=== PATIENT | female | born 1990 | race Caucasian/White ===

== ENCOUNTER 2020-08-26 08:55 | Emergency (ER) | payer BC, OTHER ==
[~2020-08-26] VITALS: Ht 167.6 cm; Wt 52.3 kg
[2020-08-26] MEDS ORDERED: NS 1,000 ML IV ONE (09:55)
[2020-08-26] MEDS ORDERED: ONDANSETRON 4MG/2ML VIAL IV ONE (09:55)
[2020-08-26 10:43] LABS: BASO # 0.1 10^3/uL (0.0-0.2); BASO % 0.5 % (0.0-1.0); EOS % 0.1 % (0.0-3.0); HEMATOCRIT 41.1 % (36.0-47.0); HEMOGLOBIN 13.7 g/dl (12.0-15.5); LYMPH # 1.9 10^3/uL (1.5-5.0); LYMPH % 16.2 % (24.0-44.0); MEAN CORPUSCULAR HEMOGLOBIN 31.9 pg (27.0-33.0); MEAN CORPUSCULAR HGB CONC 33.3 g/dl (32.0-36.5); MEAN CORPUSCULAR VOLUME 95.6 fl (80.0-96.0); MONO % 8.3 % (2.0-8.0); NEUTROPHILS # 8.6 10^3/uL (1.5-8.5); NEUTROPHILS % 74.3 % (36.0-66.0); PLATELET COUNT, AUTOMATED 285 10^3/uL (150-450); WHITE BLOOD COUNT 11.6 10^3/uL (4.0-10.0)
[2020-08-26 11:14] LABS: ALBUMIN 4.6 GM/DL (3.2-5.2); ALT/SGPT 50 U/L (12-78); AMYLASE 43 U/L (25-115); BILIRUBIN,DIRECT 0.1 MG/DL (0.0-0.2); BILIRUBIN,TOTAL 0.9 MG/DL (0.2-1.0); BLOOD UREA NITROGEN 7 MG/DL (7-18); CALCIUM LEVEL 9.6 MG/DL (8.5-10.1); CARBON DIOXIDE LEVEL 22 MEQ/L (21-32); CHLORIDE LEVEL 102 MEQ/L (98-107); CREATININE FOR GFR 0.59 MG/DL (0.55-1.30); GLOMERULAR FILTRATION RATE > 60.0 (>60); GLUCOSE, FASTING 61 MG/DL (70-100); LIPASE 57 U/L (73-393); POTASSIUM SERUM 4.3 MEQ/L (3.5-5.1); SODIUM LEVEL 136 MEQ/L (136-145); TOTAL PROTEIN 7.8 GM/DL (6.4-8.2)
[2020-08-26] MEDS ORDERED: GI COCKTAIL 50ML BTL(HYOSCYAMINE/MAALOX/LIDOCAINE VISCOUS)(1:3:1) PO ONE (11:20)
--- NOTE | 2020-08-26 11:32 | REP ---
INDICATION: ruq/epigastric pain and vomiting. COMPARISON: 07/20/2008 TECHNIQUE: Standard right upper quadrant sonography FINDINGS: The liver is homogeneously mildly hyperechoic throughout suggesting fatty infiltration. There is no hepatic mass, intrahepatic biliary dilatation cyst or adjacent ascites. Gallbladder is well filled without stone, sludge or pericholecystic fluid. Common duct is 1.8 mm without a common duct stone. Visualized pancreas was unremarkable. The right kidney is 11.5 x 5.5 x 3.3 cm without stone or hydronephrosis. IMPRESSION: 1. Diffuse fatty infiltration liver without focal hepatic mass, biliary dilatation or adjacent ascites. 2. Gallbladder, common bile duct, pancreas and right kidney grossly unremarkable. Nothing acute. <Electronically signed by Terry Toscano > 08/26/20 1126
[2020-08-26 12:02] LABS: APPEARANCE, URINE HAZY (CLEAR); BACTERIA, URINE AUTO NEGATIVE (NEGATIVE); BILIRUBIN, URINE AUTO NEGATIVE (NEGATIVE); BLOOD, URINE BLOOD NEGATIVE (NEGATIVE); COLOR, URINE YELLOW (YELLOW); GLUCOSE, URINE (UA) AUTO NEGATIVE (NEGATIVE); KETONE, URINE AUTO 2+ mg/dL (NEGATIVE); LEUKOCYTE ESTERASE, URINE AUTO NEGATIVE (NEGATIVE); NITRITE, URINE AUTO NEGATIVE (NEGATIVE); PROTEIN, URINE AUTO 2+ mg/dL (NEGATIVE); RBC, URINE AUTO 1 /HPF (0-3); SPECIFIC GRAVITY URINE AUTO 1.026 (1.002-1.035); SQUAMOUS EPITHELIAL CELL UR AU 5 /HPF (0-6); UROBILINOGEN, URINE AUTO 0.2 mg/dL (0.0-2.0); WBC, URINE AUTO 1 /HPF (0-3)
[2020-08-26] MEDS ORDERED: ONDA4TAB6 PO (12:12)
[2020-08-26] MEDS ORDERED: PROT1TAB2 PO (12:12)
[2020-08-26 12:16] VITALS: BP 111/61
== END 2020-08-26 12:20 | disposition home or self-care (01) ==
LOC: M ED 08:55
DX: K76.0 Fatty (change of) liver, not elsewhere classified (principal); K29.70 Gastritis, unspecified, without bleeding; E16.2 Hypoglycemia, unspecified; K21.9 Gastro-esophageal reflux disease without esophagitis; J45.909 Unspecified asthma, uncomplicated
CPT/HCPCS: 76705; 80048; 80076; 81001; 82150; 83690; 84702; 85025; 96361; 96374; 99284; J2405

== ENCOUNTER 2021-01-21 18:43 | Emergency (ER) | payer OTHER ==
[~2021-01-21] VITALS: Ht 167.6 cm; Wt 56.8 kg
[~2021-01-21 18:43] MED LIST: ONDA4TAB6 PO; PROT1TAB2 PO
[2021-01-21 18:48] VITALS: BP 137/85
--- OUTSIDE RECORDS SUMMARY | 2021-01-21 18:48 | CCD ---
Author Author [facility] Organization [facility] Address Unknown Phone Unavailable Care Team Providers Care Weather Teacher Name Role Phone OTTO, G EDWARD RPA Unavailable Unavailable OTTO, G EDWARD RPA Unavailable Unavailable OTTO, G EDWARD RPA Unavailable Unavailable OTTO, G EDWARD RPA Unavailable Unavailable OTTO, G EDWARD RPA Unavailable Unavailable OTTO, G EDWARD RPA Unavailable Unavailable OTTO, G EDWARD RPA Unavailable Unavailable OTTO, G EDWARD RPA Unavailable Unavailable OTTO, G EDWARD RPA Unavailable Unavailable OTTO, G EDWARD RPA Unavailable Unavailable OTTO, G EDWARD RPA Unavailable Unavailable OTTO, G EDWARD RPA Unavailable Unavailable OTTO, G EDWARD RPA Unavailable Unavailable OTTO, G EDWARD RPA Unavailable Unavailable OTTO, G EDWARD RPA Unavailable Unavailable OTTO, G EDWARD RPA Unavailable Unavailable OTTO, G EDWARD RPA Unavailable Unavailable OTTO, G EDWARD RPA Unavailable Unavailable OTTO, G EDWARD RPA Unavailable Unavailable OTTO, G EDWARD RPA Unavailable Unavailable OTTO, G EDWARD RPA Unavailable Unavailable OTTO, G EDWARD RPA Unavailable Unavailable OTTO, G EDWARD RPA Unavailable Unavailable OTTO, G EDWARD RPA Unavailable Unavailable OTTO, G EDWARD RPA Unavailable Unavailable OTTO, G EDWARD RPA Unavailable Unavailable OTTO, G EDWARD RPA Unavailable Unavailable OTTO, G EDWARD RPA Unavailable Unavailable OTTO, G EDWARD RPA Unavailable Unavailable OTTO, G EDWARD RPA Unavailable Unavailable OTTO, G EDWARD RPA Unavailable Unavailable OTTO, G EDWARD RPA Unavailable Unavailable OTTO, G EDWARD RPA Unavailable Unavailable OTTO, G EDWARD RPA Unavailable Unavailable OTTO, G EDWARD RPA Unavailable Unavailable OTTO, G EDWARD RPA Unavailable Unavailable FAM Sy MCKEON RPA Unavailable Unavailable Re-disclosure Warning The records that you are about to access may contain information from federally-assisted alcohol or drug abuse programs. If such information is present, then the following federally mandated warning applies: This information has been disclosed to you from records protected by federal confidentiality rules (42 CFR part 2). The federal rules prohibit you from making any further disclosure of this information unless further disclosure is expressly permitted by the written consent of the person to whom it pertains or as otherwise permitted by 42 CFR part 2. A general authorization for the release of medical or other information is NOT sufficient for this purpose. The Federal rules restrict any use of the information to criminally investigate or prosecute any alcohol or drug abuse patient.The records that you are about to access may contain highly sensitive health information, the redisclosure of which is protected by Article 27-F of the [facility] Public Health law. If you continue you may have access to information: Regarding HIV / AIDS; Provided by facilities licensed or operated by the [facility] Office of Mental Health; or Provided by the [facility] Office for People With Developmental Disabilities. If such information is present, then the following [facility] mandated warning applies: This information has been disclosed to you from confidential records which are protected by state law. State law prohibits you from making any further disclosure of this information without the specific written consent of the person to whom it pertains, or as otherwise permitted by law. Any unauthorized further disclosure in violation of state law may result in a fine or senior care sentence or both. A general authorization for the release of medical or other information is NOT sufficient authorization for further disc losure. Encounters Encounter Providers Location Date Indications Data Source(s ) Outpatient Attender: JLUISJULI OTTO RPA 08/26 08:17:52 AM EDT - 08/26/2020 08:43:47 AM EDT [facility] ([facility] ) Medications Medication Brand Name Start Date Product Form Dose Route Admi nistrative Instructions Pharmacy Instructions Status Indications Reaction Description Data Source(s) Ondansetron 4 MG Disintegrating Oral Tablet ONDANSETRON 08/26/2020 12:00:00 AM EDT tablet,disintegrating 16 DISSOLVE O NE TABLET ON TONGUE EVERY 6 TO 8 HOURS NEEDED NAUSEA & VOMTING DISSOLVE ONE TABLET ON TONGUE EVERY 6 TO 8 HOURS NEEDED NAUSEA & VOMTING SOLD: 08/27/2020 [employer] pantoprazole 40 MG Delayed Release Oral Tablet PANTOPRAZOLE SODIUM 08/26/2020 12:00:00 AM EDT tablet,delayed release (DR/EC) 30 T HARRIS ONE TABLET BY MOUTH EVERY DAY TAKE ONE TABLET BY MOUTH EVERY DAY SOLD: 08/27/2020 [employer] Insurance Providers Payer name Policy type / Coverage type Policy ID Covered constitution party ID Covered constitution party's relationship to cohen Policy Cohen Plan Information [facility]/307 [id number] FA2 [id number] [facility] [id number] Self [id number] N[employer] EPALS [id number] SP [id number] [facility] [id number] Problems, Conditions, and Diagnoses No Information Surgeries/Procedures No Information Results No Information Social History No Information
--- OUTSIDE RECORDS SUMMARY | 2021-01-21 20:24 | CCD ---
Author Author [facility] Organization [facility] Address Unknown Phone Unavailable Care Team Providers Care Icer Hand Name Role Phone OTTO, G EDWARD RPA [...] is protected by Article 27-F of the [facility] Public Health law. If you continue you may have access to information: Regarding HIV / AIDS; Provided by facilities licensed or operated by the [facility] Office of Mental Health; or Provided by the [facility] Office for People With Developmental Disabilities. If such information is present, then the following [facility] mandated warning applies: This information has been [...] law may result in a fine or detention sentence or both. A general authorization for the release of medical or other information is NOT sufficient authorization for further disc losure. Encounters Encounter Providers Location Date Indications Data Source(s ) Outpatient Attender: JLUISJULI OTTO RPA 08/26 08:17:52 AM EDT - 08/26/2020 08:43:47 AM EDT [facility] ([facility] ) Medications Medication Brand Name Start Date [...] HOURS NEEDED NAUSEA & VOMTING SOLD: 08/27/2020 [employer] pantoprazole 40 MG Delayed Release Oral Tablet PANTOPRAZOLE SODIUM 08/26/2020 12:00:00 AM EDT tablet,delayed release (DR/EC) 30 T HARRIS ONE TABLET BY MOUTH EVERY DAY TAKE ONE TABLET BY MOUTH EVERY DAY SOLD: 08/27/2020 [employer] Insurance Providers Payer name Policy type / Coverage type Policy ID Covered constitution party ID Covered constitution party's relationship to cohen Policy Cohen Plan Information [facility]/307 [id number] FA2 [id number] [facility] [id number] Self [id number] [employer] EPALS [id number] SP [id number] [facility]307 [id number] Problems, Conditions, and Diagnoses No Information Surgeries/Procedures No Information Results No Information Social History No Information
--- NOTE | 2021-01-22 14:35 | REP ---
INDICATION: possible seizure. COMPARISON: None. TECHNIQUE: 5 mm contiguous transaxial sections were obtained from the skull base to the cerebral convexities. FINDINGS: THE PATIENT IS STATUS POST LEFT TEMPORO FRONTAL CRANIOTOMY. 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 The ventricles and sulci are within normal limits. There is no evidence of an acute hemorrhagic or non hemorrhagic intracranial event. There is no shift of the midline structures. There is no evidence of a mass. The sella turcica, cavernous, and paracavernous structures are essentially unremarkable. The visualized portions of the paranasal sinuses and mastoid air cells are clear. Images of the skull base show no gross abnormality. IMPRESSION: No evidence of acute intracranial pathology. <Electronically signed by Jack Bardales > 01/22/21 [id number]
== END 2021-01-21 20:51 | disposition left against medical advice (07) ==
LOC: M ED 18:43
DX: Z53.21 Procedure and treatment not carried out due to patient leaving prior to being seen by health care provider (principal)

== ENCOUNTER → 2021-01-25 | Outpatient (CLI) | payer OTHER, SELFPAY | LOC: M OUTALCOH 07:49 | PROVIDERS: ATTEND Psychiatry & Neurology Psychiatry | DX: Z13.39 Encounter for screening examination for other mental health and behavioral disorders (principal); F10.20 Alcohol dependence, uncomplicated ==

== ENCOUNTER 2021-02-08 16:00 | Outpatient (RCR) | payer OTHER | END 2021-02-09 | LOC: M OUTALCOH 16:00 | PROVIDERS: ATTEND Psychiatry & Neurology Psychiatry | DX: F10.20 Alcohol dependence, uncomplicated (principal); F12.20 Cannabis dependence, uncomplicated ==

== ENCOUNTER → 2021-03-12 | Outpatient (RCR) | payer OTHER | LOC: M OUTALCOH 02-12 16:29 | PROVIDERS: ATTEND Psychiatry & Neurology Psychiatry | DX: F10.20 Alcohol dependence, uncomplicated (principal); F12.20 Cannabis dependence, uncomplicated ==

== ENCOUNTER → 2021-03-26 | Outpatient (REF) | payer OTHER ==
[2021-03-26 13:42] LABS: ALBUMIN 4.4 GM/DL (3.2-5.2); ALT/SGPT 14 U/L (12-78); BILIRUBIN,TOTAL 0.5 MG/DL (0.2-1.0); BLOOD UREA NITROGEN 10 MG/DL (7-18); CALCIUM LEVEL 9.4 MG/DL (8.5-10.1); CARBON DIOXIDE LEVEL 27 MEQ/L (21-32); CHLORIDE LEVEL 106 MEQ/L (98-107); CREATININE FOR GFR 0.78 MG/DL (0.55-1.30); FREE T4 0.73 NG/DL (0.76-1.46); GLOMERULAR FILTRATION RATE > 60.0 (>60); GLUCOSE, FASTING 87 MG/DL (70-100); POTASSIUM SERUM 4.1 MEQ/L (3.5-5.1); SODIUM LEVEL 140 MEQ/L (136-145); TOTAL PROTEIN 7.2 GM/DL (6.4-8.2)
== END ==
LOC: M SFHCADAM 11:31
PROVIDERS: ATTEND Family Medicine
DX: F41.8 Other specified anxiety disorders (principal)

== ENCOUNTER → 2021-04-09 | Outpatient (RCR) | payer MEDICAID | LOC: M OUTALCOH 03-13 10:32 | PROVIDERS: ATTEND Psychiatry & Neurology Psychiatry | DX: F10.20 Alcohol dependence, uncomplicated (principal); F12.20 Cannabis dependence, uncomplicated ==

== ENCOUNTER 2021-05-07 16:53 | Emergency (ER) | payer MEDICAID ==
[~2021-05-07] VITALS: Ht 167.6 cm; Wt 59.9 kg
[2021-05-07] MEDS ORDERED: BUSP10TA (17:23)
[2021-05-07] MEDS ORDERED: NALT50TA4 (17:23)
[2021-05-07] MEDS ORDERED: SKYL13.5 IU (17:23)
[2021-05-07] MEDS ORDERED: LEXA1TAB2 (17:23)
[2021-05-07 20:41] LABS: BASO % 0.3 % (0.0-1.0); EOS % 0.1 % (0.0-3.0); HEMATOCRIT 37.2 % (36.0-47.0); HEMOGLOBIN 12.8 g/dl (12.0-15.5); MEAN CORPUSCULAR HEMOGLOBIN 29.4 pg (27.0-33.0); MEAN CORPUSCULAR HGB CONC 34.4 g/dl (32.0-36.5); MEAN CORPUSCULAR VOLUME 85.3 fl (80.0-96.0); MONO # 0.7 10^3/uL (0.0-0.8); MONO % 7.5 % (2.0-8.0); NEUTROPHILS # 7.1 10^3/uL (1.5-8.5); NEUTROPHILS % 80.9 % (36.0-66.0); PLATELET COUNT, AUTOMATED 219 10^3/uL (150-450); RED BLOOD COUNT 4.36 10^6/uL (4.00-5.40); WHITE BLOOD COUNT 8.8 10^3/uL (4.0-10.0)
[2021-05-07 21:05] LABS: BLOOD UREA NITROGEN 12 MG/DL (7-18); CALCIUM LEVEL 9.2 MG/DL (8.5-10.1); CARBON DIOXIDE LEVEL 26 MEQ/L (21-32); CHLORIDE LEVEL 106 MEQ/L (98-107); GLOMERULAR FILTRATION RATE > 60.0 (>60); GLUCOSE, FASTING 82 MG/DL (70-100); MAGNESIUM LEVEL 2.5 MG/DL (1.8-2.4); POTASSIUM SERUM 3.9 MEQ/L (3.5-5.1); SODIUM LEVEL 138 MEQ/L (136-145)
[2021-05-07 21:07] LABS: HCG, SERUM QUALITATIVE NEGATIVE (NEGATIVE)
[2021-05-07 21:08] LABS: CK-MB VALUE MASS 8.1 NG/ML (<3.6); MB/CK RELATIVE INDEX 1.39 (< OR =4)
[2021-05-07] MEDS ORDERED: NS 1,000 ML IV ONE ×2 (21:15)
[2021-05-07] MEDS ORDERED: levETIRAcetam INJection 1,500 MG in D5W 100 ML IV ONE (21:15)
[2021-05-07] MEDS ORDERED: ONDANSETRON 4MG/2ML VIAL As Ordered ONE (22:13)
[2021-05-07] MEDS ORDERED: ONDANSETRON 4MG/2ML VIAL IV ONE (22:20)
[2021-05-07 22:45] LABS: CK-MB VALUE MASS 7.9 NG/ML (<3.6); MB/CK RELATIVE INDEX 1.25 (< OR =4)
[2021-05-07] MEDS ORDERED: KEPP1TAB PO (23:32)
[2021-05-07 23:53] VITALS: BP 117/70
[2021-05-08] MEDS ORDERED: ONDANSETRON 4MG ORAL DISINTEGRATING TAB PO ONE
== END 2021-05-08 00:02 | disposition home or self-care (01) ==
LOC: M ED 16:53
DX: R56.9 Unspecified convulsions (principal); R00.1 Bradycardia, unspecified; F32.9 Major depressive disorder, single episode, unspecified; F12.10 Cannabis abuse, uncomplicated; Z98.890 Other specified postprocedural states
CPT/HCPCS: 70450; 80048; 81002; 82550; 82553; 83735; 84703; 85025; 93005; 96361; 96365; 96375; 99285; J1953; J2405

== ENCOUNTER → 2021-05-10 | Outpatient (RCR) | payer MEDICAID ==
[~2021-05-10] MED LIST changes: +BUSP10TA; +KEPP1TAB PO; +LEXA1TAB2; +NALT50TA4; +SKYL13.5 IU
== END ==
LOC: M OUTALCOH 04-10 09:46
PROVIDERS: ATTEND Psychiatry & Neurology Psychiatry
DX: F10.20 Alcohol dependence, uncomplicated (principal); F12.20 Cannabis dependence, uncomplicated

== ENCOUNTER → 2021-05-14 | Outpatient (REF) | payer MEDICAID | LOC: M SFHCADAM 17:44 | PROVIDERS: ATTEND Physician Assistant Medical | DX: R09.81 Nasal congestion (principal) ==

== ENCOUNTER 2021-06-08 10:30 | Outpatient (RCR) | payer MEDICAID | END 2021-06-09 | LOC: M OUTALCOH 10:30 | PROVIDERS: ATTEND Psychiatry & Neurology Psychiatry | DX: F10.20 Alcohol dependence, uncomplicated (principal); F12.20 Cannabis dependence, uncomplicated ==

== ENCOUNTER → 2021-07-03 | Outpatient (CLI) | payer OTHER ==
[2021-07-03 15:36] LABS: BASO # 0.1 10^3/uL (0.0-0.2); BASO % 0.7 % (0.0-1.0); EOS # 0.1 10^3/uL (0.0-0.5); EOS % 1.5 % (0.0-3.0); HEMATOCRIT 35.8 % (36.0-47.0); HEMOGLOBIN 11.9 g/dl (12.0-15.5); LYMPH # 3.2 10^3/uL (1.5-5.0); LYMPH % 42.6 % (24.0-44.0); MEAN CORPUSCULAR HEMOGLOBIN 28.6 pg (27.0-33.0); MEAN CORPUSCULAR HGB CONC 33.2 g/dl (32.0-36.5); MEAN CORPUSCULAR VOLUME 86.1 fl (80.0-96.0); MONO # 0.6 10^3/uL (0.0-0.8); MONO % 7.4 % (2.0-8.0); NEUTROPHILS # 3.6 10^3/uL (1.5-8.5); NEUTROPHILS % 47.5 % (36.0-66.0); PLATELET COUNT, AUTOMATED 219 10^3/uL (150-450); RED BLOOD COUNT 4.16 10^6/uL (4.00-5.40); WHITE BLOOD COUNT 7.5 10^3/uL (4.0-10.0)
== END ==
LOC: M PLALAB 13:59
PROVIDERS: ATTEND Psychiatry & Neurology Psychiatry
DX: F43.23 Adjustment disorder with mixed anxiety and depressed mood (principal); F10.20 Alcohol dependence, uncomplicated; F12.99 Cannabis use, unspecified with unspecified cannabis-induced disorder; Z63.4 Disappearance and death of family member; Z56.9 Unspecified problems related to employment; F32.A Depression, unspecified

== ENCOUNTER → 2021-07-10 | Outpatient (RCR) | payer MEDICAID | LOC: M OUTALCOH 06-11 16:36 | PROVIDERS: ATTEND Psychiatry & Neurology Psychiatry | DX: F10.20 Alcohol dependence, uncomplicated (principal); F12.20 Cannabis dependence, uncomplicated ==

== ENCOUNTER 2021-08-07 10:24 | Outpatient (RCR) | payer MEDICAID | END 2021-08-09 | LOC: M OUTALCOH 10:24 | PROVIDERS: ATTEND Psychiatry & Neurology Psychiatry | DX: F10.20 Alcohol dependence, uncomplicated (principal); F12.20 Cannabis dependence, uncomplicated ==

== ENCOUNTER → 2021-08-10 | Outpatient (CLI) | payer OTHER, MEDICAID ==
[2021-08-10 18:06] LABS: HEPATITIS B SURFACE ANTIGEN NEGATIVE (NEGATIVE); HIV 1&2 SCREEN CENTAUR NEGATIVE (NEGATIVE)
[2021-08-15 19:07] LABS: HEPATITIS C QUANTITATION HCV Not Detected IU/mL (.); HSV IgM TYPES 1&2 1.07 Ratio (0.00-0.90); HSV TYPE II IgG SPECIFIC 1.49 index (0.00-0.90)
== END ==
LOC: M PLALAB 14:41
PROVIDERS: ATTEND Obstetrics & Gynecology
DX: Z11.3 Encounter for screening for infections with a predominantly sexual mode of transmission (principal)

== ENCOUNTER 2021-09-04 10:30 | Outpatient (RCR) | payer MEDICAID | END 2021-09-09 | LOC: M OUTALCOH 10:30 | PROVIDERS: ATTEND Psychiatry & Neurology Psychiatry | DX: F10.20 Alcohol dependence, uncomplicated (principal); F12.20 Cannabis dependence, uncomplicated ==

== ENCOUNTER 2021-10-09 11:00 | Outpatient (RCR) | payer MEDICAID | END 2021-10-10 | LOC: M OUTALCOH 11:00 | PROVIDERS: ATTEND Psychiatry & Neurology Psychiatry | DX: F10.20 Alcohol dependence, uncomplicated (principal); F12.20 Cannabis dependence, uncomplicated ==

== ENCOUNTER 2021-11-06 09:29 | Outpatient (RCR) | payer MEDICAID | END 2021-11-09 | LOC: M OUTALCOH 09:29 | PROVIDERS: ATTEND Psychiatry & Neurology Psychiatry | DX: F10.20 Alcohol dependence, uncomplicated (principal); F12.20 Cannabis dependence, uncomplicated ==

== ENCOUNTER → 2022-01-10 | Outpatient (REF) | payer MEDICAID | LOC: M LAB REF 12:15 | PROVIDERS: ATTEND Physician Assistant | DX: B34.9 Viral infection, unspecified (principal) ==

== ENCOUNTER → 2022-04-12 | Outpatient (CLI) | payer BC ==
[2022-04-12 14:41] LABS: ALBUMIN 4.4 G/DL (3.2-5.2); ALKALINE PHOSPHATASE 45 U/L (46-116); ALT/SGPT 13 U/L (7.0-40); AST/SGOT < 8 U/L (<34); BILIRUBIN,TOTAL 0.5 MG/DL (0.3-1.2); BLOOD UREA NITROGEN 14 MG/DL (9-23); CALCIUM LEVEL 9.1 MG/DL (8.5-10.1); CARBON DIOXIDE LEVEL 31 MMOL/L (20-31); CHLORIDE LEVEL 107 MMOL/L (98-107); CREATININE FOR GFR 0.74 MG/DL (0.55-1.30); GLOMERULAR FILTRATION RATE > 60.0 (>60); GLUCOSE, FASTING 86 MG/DL (60-100); POTASSIUM SERUM 4.8 MMOL/L (3.5-5.1); SODIUM LEVEL 142 MMOL/L (136-145); TOTAL PROTEIN 6.7 G/DL (5.7-8.2)
[2022-04-12 14:42] LABS: BASO # 0.1 10^3/uL (0.0-0.2); BASO % 0.9 % (0.0-1.0); EOS # 0.1 10^3/uL (0.0-0.5); EOS % 1.5 % (0.0-3.0); HEMATOCRIT 39.1 % (36.0-47.0); HEMOGLOBIN 12.6 g/dl (12.0-15.5); LYMPH # 2.6 10^3/uL (1.5-5.0); LYMPH % 33.8 % (24.0-44.0); MEAN CORPUSCULAR HEMOGLOBIN 29.3 pg (27.0-33.0); MEAN CORPUSCULAR HGB CONC 32.2 g/dl (32.0-36.5); MEAN CORPUSCULAR VOLUME 90.9 fl (80.0-96.0); MONO # 0.5 10^3/uL (0.0-0.8); MONO % 5.9 % (2.0-8.0); NEUTROPHILS # 4.5 10^3/uL (1.5-8.5); NEUTROPHILS % 57.6 % (36.0-66.0); PLATELET COUNT, AUTOMATED 227 10^3/uL (150-450); WHITE BLOOD COUNT 7.8 10^3/uL (4.0-10.0)
== END ==
LOC: M PLALAB 10:28
PROVIDERS: ATTEND Family Medicine
DX: Z00.00 Encounter for general adult medical examination without abnormal findings (principal)

== ENCOUNTER → 2022-06-21 | Outpatient (CLI) | payer BC | LOC: M PLARAD 07:35 | PROVIDERS: ATTEND Otolaryngology | DX: H90.3 Sensorineural hearing loss, bilateral (principal) ==

== ENCOUNTER → 2022-10-01 | Outpatient (CLI) | payer BC | LOC: M WHC 12:58 | PROVIDERS: ATTEND Family Medicine | DX: N63.21 Unspecified lump in the left breast, upper outer quadrant (principal); N60.12 Diffuse cystic mastopathy of left breast | CPT/HCPCS: 76641; 77066; G0279 ==

== ENCOUNTER → 2023-01-14 | Outpatient (REF) | payer BC ==
[2023-01-14 14:56] LABS: ALBUMIN 4.5 G/DL (3.2-5.2); ALKALINE PHOSPHATASE 36 U/L (46-116); ALT/SGPT 11 U/L (7.0-40); AST/SGOT 9 U/L (<34); BILIRUBIN,TOTAL 0.6 MG/DL (0.3-1.2); BLOOD UREA NITROGEN 11 MG/DL (9-23); CALCIUM LEVEL 9.6 MG/DL (8.5-10.1); CARBON DIOXIDE LEVEL 27 MMOL/L (20-31); CHLORIDE LEVEL 106 MMOL/L (98-107); CREATININE FOR GFR 0.62 MG/DL (0.55-1.30); GLOMERULAR FILTRATION RATE > 60.0 (>60); GLUCOSE, FASTING 72 MG/DL (60-100); SODIUM LEVEL 140 MMOL/L (136-145); THYROID STIMULATING HORMONE 1.293 uIU/ML (0.55-4.78); TOTAL PROTEIN 6.9 G/DL (5.7-8.2)
[2023-01-14 14:57] LABS: FREE T4 1.01 NG/DL (0.89-1.76)
== END ==
LOC: M SFHCADAM 11:47
PROVIDERS: ATTEND Family Medicine
DX: F41.8 Other specified anxiety disorders (principal)

== ENCOUNTER → 2023-04-24 | Outpatient (REF) | payer BC ==
[2023-04-24 18:56] LABS: BASO % 0.5 % (0.0-1.0); EOS # 0.2 10^3/uL (0.0-0.5); EOS % 1.9 % (0.0-3.0); HEMATOCRIT 39.9 % (36.0-47.0); HEMOGLOBIN 13.4 g/dl (12.0-15.5); LYMPH # 3.1 10^3/uL (1.5-5.0); LYMPH % 36.7 % (24.0-44.0); MEAN CORPUSCULAR HEMOGLOBIN 29.8 pg (27.0-33.0); MEAN CORPUSCULAR HGB CONC 33.6 g/dl (32.0-36.5); MEAN CORPUSCULAR VOLUME 88.9 fl (80.0-96.0); MONO # 0.6 10^3/uL (0.0-0.8); MONO % 7.2 % (2.0-8.0); NEUTROPHILS # 4.6 10^3/uL (1.5-8.5); NEUTROPHILS % 53.5 % (36.0-66.0); PLATELET COUNT, AUTOMATED 248 10^3/uL (150-450); RED BLOOD COUNT 4.49 10^6/uL (4.00-5.40); WHITE BLOOD COUNT 8.5 10^3/uL (4.0-10.0)
== END ==
LOC: M SFHCPLAZ 17:15
PROVIDERS: ATTEND Family Medicine
DX: R59.0 Localized enlarged lymph nodes (principal)

== ENCOUNTER → 2023-04-24 | Outpatient (REF) | payer BC ==
[2023-04-24 19:26] LABS: VITAMIN B12 LEVEL 823 PG/ML (211-911)
[2023-04-24 19:27] LABS: FOLATE > 24.0 NG/ML (>5.4)
== END ==
LOC: M LABDRAWP 17:17
PROVIDERS: ATTEND Psychiatry & Neurology Neurology
DX: D51.9 Vitamin B12 deficiency anemia, unspecified (principal)

== ENCOUNTER → 2023-05-12 | Outpatient (CLI) | payer BC | LOC: M RAD 15:48 | PROVIDERS: ATTEND Family Medicine | DX: R59.0 Localized enlarged lymph nodes (principal) ==

== ENCOUNTER → 2023-10-01 | Outpatient (REF) | payer BC ==
[~2023-10-01] MED LIST changes: +ONDA-282 PO; -ONDA4TAB6 PO
[2023-10-01 17:56] LABS: BASO % 0.5 % (0.0-1.0); EOS # 0.1 10^3/uL (0.0-0.5); HEMATOCRIT 39.9 % (36.0-47.0); HEMOGLOBIN 13.3 g/dl (12.0-15.5); LYMPH # 2.6 10^3/uL (1.5-5.0); LYMPH % 35.7 % (24.0-44.0); MEAN CORPUSCULAR HEMOGLOBIN 30.4 pg (27.0-33.0); MEAN CORPUSCULAR HGB CONC 33.3 g/dl (32.0-36.5); MEAN CORPUSCULAR VOLUME 91.3 fl (80.0-96.0); MONO # 0.5 10^3/uL (0.0-0.8); MONO % 6.1 % (2.0-8.0); NEUTROPHILS # 4.1 10^3/uL (1.5-8.5); NEUTROPHILS % 56.4 % (36.0-66.0); PLATELET COUNT, AUTOMATED 218 10^3/uL (150-450); RED BLOOD COUNT 4.37 10^6/uL (4.00-5.40); WHITE BLOOD COUNT 7.3 10^3/uL (4.0-10.0)
[2023-10-01 18:24] LABS: ALBUMIN 4.8 G/DL (3.2-5.2); ALKALINE PHOSPHATASE 37 U/L (46-116); ALT/SGPT 19 U/L (7.0-40); AST/SGOT 8 U/L (<34); BILIRUBIN,TOTAL 1.2 MG/DL (0.3-1.2); BLOOD UREA NITROGEN 12 MG/DL (9-23); CALCIUM LEVEL 9.5 MG/DL (8.5-10.1); CARBON DIOXIDE LEVEL 29 MMOL/L (20-31); CHLORIDE LEVEL 107 MMOL/L (98-107); CREATININE FOR GFR 0.74 MG/DL (0.55-1.30); GLOMERULAR FILTRATION RATE > 60.0 (>60); GLUCOSE, FASTING 87 MG/DL (60-100); POTASSIUM SERUM 4.1 MMOL/L (3.5-5.1); SODIUM LEVEL 139 MMOL/L (136-145)
[2023-10-01 18:26] LABS: FREE T4 1.15 NG/DL (0.89-1.76); THYROID STIMULATING HORMONE 1.367 uIU/ML (0.55-4.78)
== END ==
LOC: M SFHCADAM 11:34
PROVIDERS: ATTEND Family Medicine
DX: R63.0 Anorexia (principal); R59.0 Localized enlarged lymph nodes

== ENCOUNTER → 2023-11-19 | Outpatient (CLI) | payer BC | LOC: M RAD 10:42 | PROVIDERS: ATTEND Family Medicine | DX: R59.0 Localized enlarged lymph nodes (principal) ==

== ENCOUNTER 2024-12-24 07:53 | Outpatient (RCR) | payer BC | END 2025-01-09 | LOC: M PT 07:53 | PROVIDERS: ATTEND Dentist General Practice | DX: R51.9 Headache, unspecified (principal); M25.69 Stiffness of other specified joint, not elsewhere classified ==

== ENCOUNTER → 2025-02-09 | Outpatient (RCR) | payer BC | LOC: M PT 01-14 07:37 | PROVIDERS: ATTEND Dentist General Practice | DX: M26.609 Unspecified temporomandibular joint disorder, unspecified side (principal) ==